=== PATIENT | male | born 1975 | race Two or more races ===

== ENCOUNTER 2017-08-30 18:52 | Emergency (ER) | payer BC, OTHER ==
[2017-08-30] MEDS ORDERED: Proparacaine 0.5% Ophth Soln 15 ML Bottle EYELF ONE (19:18)
--- NOTE | 2017-08-30 19:21 | EDM.PDOC ---
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 He's had sneezing and some runny nose but no cough chest pain or shortness of breath no fevers no vomiting or diarrhea. He says that both eyes are itchy but the left one is more red and irritated and when he woke this morning there was some drainage from his left eye. He doesn't wear glasses or contact lenses. He has no headache no sinus pain. Review of systems: As per history of present illness and below otherwise all systems reviewed and negative. Past medical history: As per history of present illness and as reviewed below otherwise noncontributory. Surgical history: As per history of present illness and as reviewed below otherwise noncontributory. Social history: No reported history of drug or alcohol abuse. Family history: As per history of present illness and as reviewed below otherwise noncontributory. Physical exam: General: Well-developed well-nourished mildly overweight man who is nontoxic and vital signs were noted by me. HEENT: Atraumatic, normocephalic, pupils reactive, EOMs are intact, there is no discrete sinus tenderness on palpation, negative for conjunctival pallor or scleral icterus, mucous membranes moist, throat clear, neck supple, nontender, trachea midline. There is no eyelid or eyelash matting and no eyelid edema appreciated. Please see below note for fluoroscein stain and visual acuity Lungs: Clear to auscultation, breath sounds equal bilaterally, chest nontender. Heart: S1S2, regular rate and rhythm no overt murmurs Abdomen: Soft, nondistended, nontender. NABS Pelvis: Deferred Genitourinary: Deferred. Rectal: Deferred. Extremities: Atraumatic, negative for cords or calf pain. Neurovascular unremarkable. Neuro: Awake, alert, oriented. Cranial nerves II through XII unremarkable. Cerebellum unremarkable. Motor and sensory unremarkable throughout. Exam nonfocal. Diagnostics: Visual acuity per nursing= right eye 20/20 left eye 20/25 Therapeutics: Proparacaine for fluoroscein stain Fluoroscein stain was performed after proparacaine was instilled in the left eye. There is a linear area of uptake on the medial aspect of the cornea in the 8 to 9 o'clock position. There are no foreign bodies appreciated. I did tell the patient he would need to follow-up with ophthalmology and will give him antibiotics for the eye. I discussed with the patient that he should start taking [id number] allergy medications as he is stating that his eye problems have started since he has arrived here for work. Given referral for ophthalmology and primary care. Impression: Bilateral eye irritation, left eye conjunctivitis/corneal abrasion Definitive disposition and diagnosis as appropriate pending reevaluation and review of above. Bilateral Eye Pain Score (Numeric/FACES): 4 - Related Data Allergies Allergy/AdvReac Type Severity Reaction Status Date / Time No Known Allergies Allergy Verified 08/30/17 19:09 Home Meds: Home Meds . [No Known Home Meds] 08/30/17 [History] Past Medical History - Past Health History Medical/Surgical History: Denies Medical/Surgical History - Infectious Disease History Infectious Disease History: Reports: None Social & Family History - Tobacco Use Smoking Status *Q: Never Smoker - Caffeine Use Caffeine Use: Reports: Soda, Tea - Recreational Drug Use Recreational Drug Use: No ED ROS GENERAL - Review of Systems Review Of Systems: ROS reveals no pertinent complaints other than HPI. ED EXAM, GENERAL - Physical Exam Exam: See Below (See dictation) Course - Vital Signs Last Recorded V/S: Last Vital Signs Temp 37.2 C 08/30/17 19:09 Pulse 97 08/30/17 19:09 Resp 16 08/30/17 19:09 BP 146/86 H 08/30/17 19:09 Pulse Ox 95 08/30/17 19:09 - Orders/Labs/Meds Meds: Medications Discontinued Medications Generic Name Dose Route Start Last Admin Trade Name Freq PRN Reason Stop Dose Admin Proparacaine HCl 1 ml 08/30/17 19:18 Proparacaine 0.5% Ophth Soln EYELF 08/30/17 19:19 ONETIME ONE Departure - Departure Time of Disposition: 19:26 Disposition: Home, Self-Care 01 Condition: Good Clinical Impression: Irritation of both eyes Corneal abrasion, left Qualifiers: Encounter type: initial encounter Qualified Code(s): S05.02XA - Injury of conjunctiva and corneal abrasion without foreign body, left eye, initial encounter - Discharge Information Forms: ED Department Discharge Additional Instructions: The following information is given to patients seen in the emergency department who are being discharged to home. This information is to outline your options for follow-up care. We provide all patients seen in our emergency department with a follow-up referral. The need for follow-up, as well as the timing and circumstances, are variable depending upon the specifics of your emergency department visit. If you don't have a primary care physician on staff, we will provide you with a referral. We always advise you to contact your personal physician following an emergency department visit to inform them of the circumstance of the visit and for follow-up with them and/or the need for any referrals to a consulting specialist. The emergency department will also refer you to a specialist when appropriate. This referral assures that you have the opportunity for followup care with a specialist. All of these measure are taken in an effort to provide you with optimal care, which includes your followup. Under all circumstances we always encourage you to contact your private physician who remains a resource for coordinating your care. When calling for followup care, please make the office aware that this follow-up is from your recent emergency room visit. If for any reason you are refused follow-up, please contact the [facility] emergency department at and ask to speak to the emergency department charge nurse. [facility] Primary care- Internal Medicine and Family [facility] [address] [place] [id number] [facility]--ophthalmology [address] [place] [id number] Please use antibiotics for your INR 0 been prescribed and as directed. He is also use [id number] eye lubricant when you're outside. Please start over- the-counter allergy medicine such as Claritin or Lori to help with your other symptoms and your eye itching. Please call and schedule a follow-up appointment with her horse wrangler at [facility] using the resources you have been given above as well as primary care. Return to ER as needed and as discussed.
[2017-08-30 19:46] VITALS: BP 141/81
== END 2017-08-30 19:45 | disposition home or self-care (01) ==
LOC: MW.ED 18:52
DX: H57.8 Other specified disorders of eye and adnexa (principal); R09.89 Other specified symptoms and signs involving the circulatory and respiratory systems
CPT/HCPCS: 99282; 99283